=== PATIENT | male | born 1940 | race Caucasian/White ===

== ENCOUNTER 2017-07-05 03:43 | Inpatient (IN) | payer OTHER, MEDICARE ==
[~2017-07-05] VITALS: Ht 162.6 cm; Wt 83.9 kg
[~2017-07-05 03:43] MED LIST: AMLODIPINE BESY10 M1 PO; ATORVASTATIN CA20 M1 PO; CYANOCOBAL1000 MCG/2 IM; CYMBALTA30 M1 PO; GLIPIZIDE ER5 M1 PO; GLUCOPHAGE1000 M1 PO; HYDROCHLOROTHIA25 M1 PO; LEXAPRO10 M1 PO; LUMIGAN2.5 ML OPH; NEURONTIN300 M1 PO; TENORMIN50 M1 PO; VITAMIN D350000 UNIT PO
--- NOTE | 2017-07-05 09:45 | Admission Core Measures ---
Acute Coronary Syndrome (CM) ACS Core Measures Acute Coronary Syndrome Diagnosis No Congestive Heart Failure (NEW) CHF Core Measures Congestive Heart Failure Diagnosis No Cerebrovascular Accident (NEW) CVA Core Measures CVA/TIA Diagnosis No Venous Thromboembolism VTE Core Grace (View Protocol) VTE Risk Factors Surgery No Mechanical VTE Prophylaxis d/t N/A MechProphylax Ordered No VTE Pharm Prophylaxis d/t NA PharmProphylax ordered Problem List As ranked by this Provider includes Assessment & Plan 1. Primary osteoarthritis of left hip HOME MEDS Home Med List Amlodipine Besylate 10 MG TABLET 1 TAB PO DAILY BP (Reported) Aspirin (Aspirin*) 325 MG TABLET 1 TAB PO DAILY HEART HEALTH (Reported) Atenolol (Tenormin) 50 MG TABLET 1 TAB PO DAILY BP (Reported) Atorvastatin Calcium 20 MG TABLET 1 TAB PO DAILY CHOL (Reported) Bimatoprost (Lumigan) 0.01 % DROPS 1 GTT OPH QPM EYES (Reported) Cholecalciferol (Vitamin D3) (Vitamin D3) 50,000 UNIT CAPSULE 1 PO ONCE A WEEK SUPP (Reported) Cyanocobalamin (Vitamin B-12) (Cyanocobalamin Injection) 1,000 MCG/ML VIAL 1 ML IM Q30D SUPP (Reported) Duloxetine Hydrochloride (Cymbalta) 30 MG CAPSULE.DR 1 CAP PO DAILY DEPRESSION (Reported) Escitalopram Oxalate (Lexapro) 10 MG TABLET 1 TAB PO DAILY DEPRESSION ( Reported) Gabapentin (Neurontin) 300 MG CAPSULE 1 CAP PO TID PAIN (Reported) Glipizide (Glipizide ER) 5 MG TAB.ER.24 1 TAB PO DAILY DIABETES (Reported) Hydrochlorothiazide 25 MG TABLET 1 TAB PO DAILY BP (Reported) Metformin HCl (Glucophage) 1,000 MG TABLET 1 TAB PO BID DIABETES (Reported)
--- NOTE | 2017-07-05 09:47 | Surgical Discharge Summary ---
Visit Information Visit Dates Admission Date: 07/05/17 Discharge Date: 07/07/17 History of Present Illness Chief Complaint: Left hip pain related to osteoarthritis Surgical History Pertinent Surgical History: hip replacement Review of Systems: See H&P Hospital Course Course Attending Physician: Vamshi Dye MD Primary Care Physician: Jessica ROBERTS,Unm Hospital Course: Patient was admitted to the hospital for an elective left total hip arthroplasty. Procedure was tolerated well and patient was transferred to a general surgical floor. Diet was advanced and tolerated. Physical therapy performed evaluation and treatment. At time of hospital discharge, vital signs were stable, neurovascular status was intact, and pain was controlled with the use of oral pain medications. Allergies: Coded Allergies: No Known Allergies (07/04/17) NKA PER ANTIBIOTIC ORDER SHEET OF 07/04/17 ([facility]) Significant Procedures: 07/05/2017 left total hip arthroplasty, Dr. Dye Disposition Summary Disposition Principal Diagnosis: Primary osteoarthritis left hip Additional Diagnosis: Name, status post left total hip arthroplasty Discharge Disposition: SNF Discharge Instructions General Discharge Information Code Status: Full Code Patient's Diet: Diabetic diet Patient's Activity: Weight-bear as tolerated, use assistive devices as needed Follow-Up Instructions/Appts: Follow up with Dr. Dye in 6 weeks from date of surgery. Please call his office to schedule/confirm this appointment. Medications at Discharge Discharge Medications: Stop taking the following medications: Aspirin (Aspirin*) 325 MG TABLET ORAL DAILY Continue taking these medications: Amlodipine Besylate (Amlodipine Besylate) 10 MG TABLET 1 Tablet ORAL DAILY Comments: Last Taken: 07/07/17 Time: 09:13 Atenolol (Tenormin) 50 MG TABLET 1 Tablet ORAL DAILY Comments: Last Taken: 07/07/17 Time: 09:13 Atorvastatin Calcium (Atorvastatin Calcium) 20 MG TABLET 1 Tablet ORAL DAILY Comments: Last Taken: 07/07/17 Time: 09:13 Bimatoprost (Lumigan) 0.01 % DROPS 1 Drop In the eye Every night Comments: NOT GIVEN IN THE HOSPITAL Cyanocobalamin (Vitamin B-12) (Cyanocobalamin Injection) 1,000 MCG/ML VIAL 1 Milliliters INTRAMUSC ONCE A MONTH Comments: NOT GIVEN IN THE HOSPITAL Duloxetine Hydrochloride (Cymbalta) 30 MG CAPSULE. 1 Capsule ORAL DAILY Comments: Last Taken: 07/07/17 Time: 09:13 Escitalopram Oxalate (Lexapro) 10 MG TABLET 1 Tablet ORAL DAILY Comments: Last Taken: 07/07/17 Time: 09:13 Gabapentin (Neurontin) 300 MG CAPSULE 1 Capsule ORAL THREE TIMES DAILY Comments: NOT GIVEN IN THE HOSPITAL Glipizide (Glipizide ER) 5 MG TAB.ER.24 1 Tablet ORAL DAILY Comments: NOT GIVEN IN THE HOSPITAL Hydrochlorothiazide (Hydrochlorothiazide) 25 MG TABLET 1 Tablet ORAL DAILY Comments: Last Taken: 07/07/17 Time: 09:13 Metformin HCl (Glucophage) 1,000 MG TABLET 1 Tablet ORAL TWICE DAILY Comments: NOT GIVEN IN THE HOSPITAL Cholecalciferol (Vitamin D3) (Vitamin D3) 50,000 UNIT CAPSULE 1 ORAL ONCE A WEEK Comments: NOT GIVEN IN THE HOSPITAL Start taking the following new medications: Aspirin (Ecotrin*) 325 MG TABLET.DR 1 Tablet ORAL TWICE DAILY Qty = 60 No Refills Comments: NOT GIVEN IN THE HOSPITAL Docusate Sodium (Colace) 100 MG CAPSULE 1 Capsule ORAL TWICE DAILY Qty = 14 No Refills Instructions: DISCONTINUE USE IF YOU DEVELOP LOOSE STOOL OR DIARRHEA Comments: Last Taken: 07/07/17 Time: 10:44 Polyethylene Glycol 3350 (Miralax) 17 GRAM POWD.PACK 1 Packet ORAL DAILY Qty = 7 No Refills Instructions: dissolve in water, DISCONTINUE USE IF YOU DEVELOP LOOSE STOOL OR DIARRHEA Comments: Last Taken: 07/07/17 Time: 09:13 Omeprazole Magnesium (Prilosec Otc) 20 MG TABLET.DR 1 Tablet ORAL DAILY Qty = 30 No Refills Comments: Last Taken: 07/07/17 Time: 06:11 Hydromorphone HCl (Dilaudid) 2 MG TABLET 1-2 Tablet ORAL EVERY 4-6 HOURS NEEDED as needed for PAIN Qty = 36 No Refills Comments: Last Taken: 07/07/17 Time: 06:11
--- NOTE | 2017-07-05 09:48 | Patient Discharge Instructions ---
Discharge Instructions General Discharge Information You were seen/treated for: Left hip pain related to primary osteoarthritis You had these procedures: Left total hip arthroplasty Watch for these problems: Increasing pain despite the use of pain medication Increasing redness, warmth or swelling Drainage of any type from incision Inability to bear weight on operative leg Persistent nausea and vomiting Fever greater than 101.5 degrees Other wound care: Please keep wound clean and dry. No ointments or lotions of any type on or near incision. Your dressing will be changed by your nurse on the second day after your surgery. Daily dry dressing changes are recommended each day thereafter. You may shower 48hr after surgery. Do not soak your wound- no tub baths or swimming. Special Instructions: Aspirin: You are taking this medication to help prevent blood clot formation. Please take with food to protect your stomach lining. Take as directed. Protonix (pantoprazole): Take this medication to protect your stomach lining while taking high dose aspirin. Constipation: Pain medication can cause constipation. It is recommended that you take Colace and miralax daily. You may discontinue this medication if you develop loose stool or diarrhea. If you wish to continue this medication, it is available over the counter. If you are unable to move your bowels or pass gas after several days, please contact your doctor. Diet Recommended Diet: Diabetic Activity Activity Limited to: Weight bear as tolerated Additional ACTIVITY Info: Use assistive devices as needed Acute Coronary Syndrome Inclusion Criteria At DC or during hospital stay patient has or had the following: ACS DIAGNOSIS No Discharge Core Measures Meds if any: Prescribed or Continued at Discharge Meds if any: NOT Prescribed or Continued at Discharge Congestive Heart Failure Inclusion Criteria At DC or during hospital stay patient has or had the following: CHF DIAGNOSIS No Discharge Core Measures Meds if any: Prescribed or Continued at Discharge Meds if any: NOT Prescribed or Continued at Discharge Cerebrovascular accident Inclusion Criteria At DC or during hospital stay patient has or had the following: CVA/TIA Diagnosis No Discharge Core Measures Meds if any: Prescribed or Continued at Discharge Meds if any: NOT Prescribed or Continued at Discharge Venous thromboembolism Inclusion Criteria VTE Diagnosis No VTE Type NONE VTE Confirmed by (Test) NONE Discharge Core Measures - Per Current guidelines, there needs to be overlap - treatment for the first 5 days of Warfarin therapy. - If discharged on Warfarin prior to 5 days of - overlap therapy, the patient will need to be - assessed for post discharge needs including - *Post discharge parental anticoagulation - *Warfarin and/or parental anticoagulation education - *Follow up date to check INR post discharge At least 5 days overlap therapy as Inpatient No Meds if any: Prescribed or Continued at Discharge Note: Overlap Therapy is Warfarin and Anticoagulant Meds if any: NOT Prescribed or Continued at Discharge
--- NOTE | 2017-07-05 14:33 | Operative Report ---
Operative/Inv Procedure Report Surgery Date: 07/05/17 Name of Procedure: Left total hip replacement Pre-Operative Diagnosis: Primary left hip DJD Post-Operative Diagnosis: Same Estimated Blood Loss: 250 Surgeon/Certified [place] Administrator: Marnie ROBERTS,Vamshi Jaffe Anesthesia: block Operative/Procedure Note Note: Description of Procedure: The patient was taken to the operating room and positively identified. After induction of spinal anesthesia and administration of appropriate pre-operative antibiotics, the patient was positioned supine on the operating room table and all bony prominences were well padded. After performing a surgical timeout, the left lower extremity was prepped and draped in the usual sterile fashion. A direct anterior approach was made to the left hip. The incision was carried sharply through superficial soft tissues to the level of the fascia. Meticulous hemostasis was maintained with Bovie electocautery. The fascia over the tensor fascia zulema muscle was opened sharply and the interval between the TFL and the sartorius was entered bluntly taking care to stay lateral to the lateral femoral cutaneous nerve. Retractors were placed around the femoral neck and the pericapsular fat was identified. The ascending branches of the lateral femoral circumflex vessels were identified and carefully coagulated. The pericapsular fat and anterior capsule were then resected. A napkin ring osteotomy was performed and the femoral head was removed without difficulty. Attention was then turned to the acetabulum. After appropriate placement of retractors, the acetabulum was exposed. Soft tissue was cleaned from the acetabular margin and notch. Overhanging osteophytes were removed and the teardrop was exposed. The acetabulum was then sequentially reamed to accept a 54 mm [place] Tritanium hemispherical solid shell. This was impacted into place in the appropriate position and fitted with a 36 mm Trident X3 zero degree polyethylene insert. Attention was then turned to the femur. After performing the appropriate ligament releases, the proximal femur was exposed. It was then sequentially broached to accept a size 3 Arely Accolade II stem. This was trialed for leg length and stability. The trial component was removed and the final component was impacted into place. A Dall-Miles cable was placed prophylactically. The trunnion was carefully cleaned and fit with a 36 mm, +2.5 Biolox delta ceramic femoral head. The hip was reduced and put through a full range of motion and found to be stable. The articular space was then irrigated with sterile saline. The periarticular soft tissues were infilitrated with Marcaine. The fascial layer was closed with interrupted #1 vicryl suture and the skin was re-approximated with interrupted 2 -0 vicryl. The skin was closed with a running 3-0 V-Lock suture. Steri-strips and a sterile dressing were applied. The patient was awakened and taken to the recovery room in satisfactory condition.
--- NOTE | 2017-07-05 15:03 | RADIOLOGY REPORT ---
EXAMINATION: XR HIP, LEFT CLINICAL INFORMATION: Status post left hip replacement. COMPARISON: None available. TECHNIQUE: AP and crosstable lateral views of the left hip. of the left hip. FINDINGS: Examination demonstrates a total hip replacement in the normal expected position. There is no dislocation or other complication. A single cerclage wire is located at the intertrochanteric region. IMPRESSION: Status post total hip arthroplasty. No complications.
[2017-07-05 16:20] VITALS: BP 138/60
--- NOTE | 2017-07-05 16:27 | PN- Orthopedic ---
Subjective Subjective: POST-OP CHECK PT IN BED IN PACU, NO PAIN, NO PARESTHESIAS, SPINAL HAS WORN OFF. dENEIS N/V. DENIES CP/SOB. Objective Vital Signs and I&Os Intake & Output 07/05 1600 07/05 0800 07/05 0000 07/04 1600 07/04 0800 07/04 0000 Intake Total Output Total Balance Patient 181 lb Weight VSS, AFEBRILE Physical Exam: GEN- NAD RESP-CLEAR CARDIAC-RRR ABD-SOFT, NT EXT- LEFT HIP SOFT, DRESSING CLEAN AND DRY. DISTAL SENSORY AND MOTOR FUNCTION INTACT. 2+PT PULSE BILATERALLY Assessment/Plan Assessment/Plan 77YO M SP L YVETTE POD0. STABLE PHYSICAL THERAPY- WBAT PAIN MANAGEMENT DVT PPX- ASA 325 DAILY REG DIET REGULAR HOME MEDS DRESSING CHANGE POD2 PLAN TO GO TO STR ON POD2 LIKELY Core Measures Venous Thromboembolism VTE Risk Factors Surgery No Mechanical VTE Prophylaxis d/t N/A MechProphylax Ordered No VTE Pharm Prophylaxis d/t NA PharmProphylax ordered
[2017-07-05 23:16] VITALS: BP 120/60
[2017-07-06 06:57] VITALS: BP 112/64
--- NOTE | 2017-07-06 07:52 | PN- Orthopedic ---
Subjective Subjective: Awake, alert No complaints overnight Tolerating diet, pain tolerable with meds, has not ambulated with PT yet Objective Vital Signs and I&Os Vital Signs Date Time Temp Pulse Resp B/P B/P Pulse O2 O2 Flow FiO2 Mean Ox Delivery Rate 07/06 0657 97.9 72 18 112/64 98 Room Air 07/05 2316 98.1 70 20 120/60 95 Room Air 07/05 2124 Room Air Room Air 07/05 1620 97.5 65 16 138/60 94 Room Air Intake & Output 07/06 0807/06 0000 07/05 1600 07/05 0800 07/05 0000 07/04 1600 Intake Total 1105 Output Total 450 350 Balance -450 755 Intake, IV 625 Intake, Oral 480 Output, Urine 450 350 Patient 185 lb Weight Weight Reported by Patient Measurement Method Physical Exam: vss, afebrile General: alert and oriented times three chest: clear anteriorly bilaterally, RRR Abd: soft, good bs Ext: warm, no edema, no calf tenderness - refused alps after 3 am due to not being able to sleep with them on, left foot pain from a recent fall - decreased strength 4/5 at LUE and LLE from prior stroke - at baseline Wd: dressed, dry, hematoma surrounding incision - soft Assessment/Plan Assessment/Plan 77yo male pod 1 s/p L THR, history of cva with left sided weakness, ambulates with walker at baseline voiding post op - dc ivf pain managment PT - WBAT dc planning - likely STR encourage use of ALPS Core Measures Venous Thromboembolism VTE Risk Factors Surgery No Mechanical VTE Prophylaxis d/t N/A MechProphylax Ordered No VTE Pharm Prophylaxis d/t NA PharmProphylax ordered
[2017-07-06 08:56] LABS: ABSOLUTE BASOPHIL COUNT 0 /CUMM (0.0-0.2); ABSOLUTE EOSINOPHIL COUNT 0 /CUMM (0.0-0.7); ABSOLUTE GRANULOCYTE CT 5.6 /CUMM (1.4-6.5); ABSOLUTE LYMPH COUNT 0.9 /CUMM (1.2-3.4); ABSOLUTE MONOCYTE COUNT 0.7 /CUMM (0.10-0.60); BASOPHIL % 0.2 % (0.0-2.0); EOSINOPHIL % 0.1 % (0-5); GRANULOCYTE % 77.1 % (42.2-75.2); HEMATOCRIT 24.4 % (42-52); MEAN CORPUSCULAR HGB 28.5 PG (27.0-31.0); MEAN CORPUSCULAR HGB CONC 32.9 G/DL (33.0-37.0); MEAN CORPUSCULAR VOLUME 86.6 FL (80.0-94.0); PLATELET COUNT 215 /CUMM (130-400); RBC DISTRIBUTION WIDTH 13.9 % (11.5-14.5); RED BLOOD CELL CT 2.82 /CUMM (4.70-6.10); WHITE BLOOD CELL COUNT 7.3 /CUMM (4.8-10.8)
[2017-07-06 13:50] VITALS: BP 112/62
[2017-07-06 21:59] VITALS: BP 118/58
[2017-07-07 06:00] VITALS: BP 112/64
[2017-07-07 09:13] VITALS: BP 118/72
--- NOTE | 2017-07-07 10:29 | PN- Orthopedic ---
Subjective Subjective: Patient doing well. States that he has some mild discomfort but feels that his post operative pain is less than prior to surgery. He denies chest pain, shortness of breath and difficulty breathing. He denies nausea and vomitting. Objective Vital Signs and I&Os Vital Signs Date Time Temp Pulse Resp B/P B/P Pulse O2 O2 Flow FiO2 Mean Ox Delivery Rate 07/07 0913 70 118/72 07/07 0913 70 118/70 07/07 0600 97.9 68 20 112/64 96 Room Air 07/06 2159 98.1 66 20 118/58 96 Room Air 07/06 1350 98.5 68 20 112/62 97 Room Air 07/06 1112 68 140/68 07/06 1111 68 140/68 Intake & Output 07/07 1600 07/07 0800 07/07 0000 07/06 1600 07/06 0800 07/06 0000 Intake Total 480 400 352 416 4396 Output Total 400 850 400 350 650 350 Balance -400 -370 0 150 50 755 Intake, IV 250 500 625 Intake, Oral 480 400 250 200 480 Number 0 Bowel Movements Output, Urine 400 850 400 350 650 350 Patient 185 lb Weight Weight Reported by Patient Measurement Method Physical Exam: General: Alert and oriented x3, no acute distess Cardiac: RRR, s1s2 Pulm: CTA bilaterally, non-labored respiratory effort Abdomen: Non-tender, non-distended Extremities: Moves all extremities, distal sensation grossly intact. Skin warm and well perfused. DP pulses palpable bilaterally. Bilateral calves soft and non-tender Surgical site: Left hip: Dressing dry and intact. Ecchymosis noted throughout upper thigh and scrotal area. Thigh compartment soft. No active drainage from incision. Clean, dry dressing reapplied. Assessment/Plan Assessment/Plan This is a 77 year old male, POD 2, s/p L THR. -Daily dry dressing changes recommended. -Can WBAT -OOB with PT/assistance while in hospital -PT cleard -Continue current pain regimen -Discharge to home with [facility] Core Measures Venous Thromboembolism VTE Risk Factors Surgery No Mechanical VTE Prophylaxis d/t N/A MechProphylax Ordered No VTE Pharm Prophylaxis d/t NA PharmProphylax ordered
[2017-07-07] MEDS ORDERED: PRILOSEC OTC20 M1 PO (11:13)
[2017-07-07] MEDS ORDERED: MIRALAX17 G1 PO (11:13)
[2017-07-07] MEDS ORDERED: ASPIRIN EC325 M2 PO (11:13)
[2017-07-07] MEDS ORDERED: COLACE100 M1 PO (11:13)
[2017-07-07] MEDS ORDERED: DILAUDID2 M1 PO (11:13)
[2017-07-07] MEDS ORDERED: ASPIRIN325 M2 PO (15:42)
== END 2017-07-07 18:10 | disposition home health service (06) | DRG 470 ==
LOC: 2NA 03:43 → SDA 03:43 → EDBD 03:43 → ENRESERV 14:30 → CANRESERV 14:30 → ENRESERV 15:44 → ENTRNSPT 15:57 → EDTRNSPTSTS 16:28 → EDTRNSPT 16:28 → 2NA 16:31 → CMPTRNSPT 16:40 → ENTRNSPT 07-07 17:44 → EDTRNSPTSTS 07-07 17:54 → EDTRNSPT 07-07 17:54 → 2NA 07-07 18:10 → CMPTRNSPT 07-07 18:17
PROVIDERS: Physician Assistant Surgical
PROC: 0SRB04Z Replacement of Left Hip Joint with Ceramic on Polyethylene Synthetic Substitute, Open Approach (ICD-10-PCS; principal; 2017-07-05)
DX: M16.12 Unilateral primary osteoarthritis, left hip (principal); E11.51 Type 2 diabetes mellitus with diabetic peripheral angiopathy without gangrene; I69.354 Hemiplegia and hemiparesis following cerebral infarction affecting left non-dominant side; G47.33 Obstructive sleep apnea (adult) (pediatric); I10 Essential (primary) hypertension; I25.10 Atherosclerotic heart disease of native coronary artery without angina pectoris; I25.2 Old myocardial infarction; Z79.82 Long term (current) use of aspirin
CPT/HCPCS: 2NASP; 36415; 73502-LT; 82436; 88304; 97110-GO; 97116-GO; 97161-GP; 97530-GO; C9399; J0131; J0690; J0735; J2405; J2550; J3490; J7042